=== PATIENT | female | born 1950 | race Caucasian/White ===

== ENCOUNTER 2018-09-20 12:44 | Emergency (ER) | payer MEDICARE, BC ==
[~2018-09-20] VITALS: Ht 154.9 cm; Wt 77.3 kg
[2018-09-20 13:24] LABS: BASOPHILS % (AUTO) 0.3 % (0-1); EOSINOPHILS # (AUTO) 0.3 X10'3 (0-0.9); EOSINOPHILS % (AUTO) 4.1 % (0-6); HEMOGLOBIN 12.7 g/dl (12.0-16.0); LYMPHOCYTES # (AUTO) 1.3 X10'3 (1.1-4.8); LYMPHOCYTES % (AUTO) 15.7 % (21-51); MEAN CORPUSCULAR HEMOGLOBIN 28.5 PG (27.0-31.0); MEAN CORPUSCULAR HGB CONC 33.3 % (33.0-36.5); MEAN CORPUSCULAR VOLUME 85.6 FL (78-98); MEAN PLATELET VOLUME 7.7 FL (7.4-10.4); MONOCYTES # (AUTO) 0.4 X10'3 (0-0.9); MONOCYTES % (AUTO) 4.3 % (2-12); NEUTROPHILS # (AUTO) 6.3 X10'3 (1.8-7.7); NEUTROPHILS % (AUTO) 75.6 % (42-75); PLATELET COUNT 316 X10'3 (140-440); RED BLOOD COUNT 4.44 X10'6 (4.20-5.60); WHITE BLOOD COUNT 8.4 X10'3 (4.5-11.0)
[2018-09-20 13:36] LABS: ALANINE AMINOTRANSFERASE 13 U/L (12-78); ALBUMIN 2.6 G/DL (3.4-5.0); ALBUMIN/GLOBULIN RATIO 0.6 (1.1-1.5); ALKALINE PHOSPHATASE 103 IU/L (46-116); ANION GAP 8 (8-16); ASPARTATE AMINO TRANSFERASE 12 U/L (10-37); BILIRUBIN,TOTAL 0.2 MG/DL (0.1-1.0); BLOOD UREA NITROGEN 13 MG/DL (7-18); BUN/CREATININE RATIO 13.1 (6.6-38.0); CALCIUM 9.8 MG/DL (8.5-10.1); CHLORIDE 100 MMOL/L (99-107); CREATININE 0.99 MG/DL (0.40-0.90); GLUCOSE 314 MG/DL (70-104); SODIUM 134 MMOL/L (135-145); eGFR 56 ML/MIN
[2018-09-20 13:40] LABS: INR 0.9 INR; PARTIAL THROMBOPLASTIN TIME 25 SECONDS (22-32); PROTHROMBIN TIME 9.3 SECONDS (9.0-12.0)
[2018-09-20] MEDS ORDERED: hydrALAZINE 20mg/ml inj. IV ONE ×2 (14:45→15:40)
[2018-09-20] MEDS ORDERED: LISI-600 PO (15:41)
[2018-09-20 16:17] VITALS: BP 182/79
== END 2018-09-20 16:18 | disposition home or self-care (01) ==
LOC: ER 12:44
DX: I10 Essential (primary) hypertension (principal); I25.2 Old myocardial infarction; J45.909 Unspecified asthma, uncomplicated; E11.9 Type 2 diabetes mellitus without complications; Z85.3 Personal history of malignant neoplasm of breast; Z98.890 Other specified postprocedural states; Z56.0 Unemployment, unspecified; Z88.0 Allergy status to penicillin; Z79.899 Other long term (current) drug therapy
CPT/HCPCS: 36415; 71045; 80053; 84484; 85025; 85610; 85730; 93005; 96374; 96376; 99284; J0360

== ENCOUNTER 2019-01-07 14:16 | Emergency (ER) | payer MEDICARE, BC ==
[~2019-01-07] VITALS: Ht 160 cm; Wt 90.0 kg
--- NOTE | 2019-01-07 15:26 | NUR ---
offered to help Pt. to the restroom told this nurse to go away from her. Patient crying hyserically in the hallway, prior to ambulating.
--- NOTE | 2019-01-07 15:39 | NUR ---
up to br via wheelchair. pt teary eyed.
--- NOTE | 2019-01-07 15:44 | NUR ---
back to bed via wheel chair. pt needs asst on transfer. pt has been teary eyed for past month due to pain in right hip.
[2019-01-07] MEDS ORDERED: HYDROcodone/acetaminophen 10/325mg tab PO ONE (15:50)
[2019-01-07] MEDS ORDERED: HYDR-4353 PO (16:31)
[2019-01-07 16:53] VITALS: BP 178/85
== END 2019-01-07 16:56 | disposition home or self-care (01) ==
LOC: ER 14:16
DX: M25.551 Pain in right hip (principal); M54.5 Low back pain; I10 Essential (primary) hypertension; I25.2 Old myocardial infarction; J45.909 Unspecified asthma, uncomplicated; E11.9 Type 2 diabetes mellitus without complications; Z56.0 Unemployment, unspecified; Z88.0 Allergy status to penicillin
CPT/HCPCS: 72100; 73502; 99284